=== PATIENT | female | born 1960 | race Caucasian/White ===

== ENCOUNTER 2024-12-15 16:47 | Emergency (ER) | payer OTHER, SELFPAY ==
[2024-12-15 16:51] VITALS: BP 143/85
[2024-12-15] MEDS: TYLENOL 1000 MG PO (17:37)
[2024-12-15] MEDS: ADACEL 0.5 ML IM (17:37)
--- NOTE | 2024-12-15 17:40 | ED.GENMED ---
History of Present Illness
General
Chief Complaint: Fall
Time Seen by Provider: 12/15/24 16:54
History of Present Illness
History of Present Illness:
64-year-old female with history of hyperlipidemia and thyroid disease presenting after a fall. Patient arrives from the nursing home where she notes that she tripped on her shackles and fell forward onto the pavement, striking her face. Notes that she
started to have epistaxis, and also fell onto her knees. Denies loss of consciousness. She is not on any blood thinners. Denies neck pain. Denies prodromal symptoms such as dizziness or lightheadedness. Denies chest pain or difficulty
breathing. Notes that the nosebleed has improved. Tetanus status unknown.
Phy Exam
Physical Exam
Physical Exam:
General: Well-appearing, no clinical signs of dehydration, nontoxic and in no acute distress
HEENT: protecting airway
Head: Ecchymosis and abrasions to the forehead and nose with evidence of improved epistaxis to the left nare, no active bleeding. Laceration above the lip, irregular. No lacerations in the mouth, jaw aligned. No nasal septal hematoma
Neck: appears supple
CV: Normal heart rate, regular rhythm
Resp: No accessory muscle use, no increased work of breathing
Abd: Soft and non-distended, no tenderness to palpation
Extremities: No deformities, no swelling. Mild bruising to the bilateral suprapatellar knees with abrasions. Range of motion intact.
Neuro: alert, no focal neurologic deficit
: deferred
Rectal: deferred
Psych: Normal affect
Skin: Intact
Course
Orders/Labs/Results
Orders:
Orders
12/15/24 17:12
CT Facial Bones W/o Iv Contras Urgent
Comment:
Reason For Exam: fall, nasal trauma
Knee, Left 4 or More Views [CR Knee - Left 4 Or More View*] Urgent
Comment:
Reason For Exam: fall, bruising
Knee, Right 4 or More Views [CR Knee- Right 4 Or More View*] Urgent
Comment:
Reason For Exam: fall, abrasions
12/15/24 17:13
CT Head W/o Iv Contrast Urgent
Comment:
Reason For Exam: fall, facial trauma
12/15/24 17:18
Acetaminophen [Tylenol] 1,000 mg PO NOW STA
Tetanus/Diphth/Acelpertussis [Adacel] 0.5 ml IM .ONCE ONE
Vital Signs
Initial and Last Documented VS:
Initial Vital Signs
Temp Pulse Resp BP Pulse Ox
97.8 F 68 18 143/85 98
12/15/24 16:51 12/15/24 16:51 12/15/24 16:51 12/15/24 16:51 12/15/24 16:51
Last Documented Vital Signs
Temp Pulse Resp BP Pulse Ox
97.8 F 68 18 143/85 98
12/15/24 16:51 12/15/24 16:51 12/15/24 16:51 12/15/24 16:51 12/15/24 20:00
Procedures
Laceration Closure
upper lip area:
Status of Wound: dirty
Size of Wound in cm: 3
Description of Wound Edges: ragged and macerated
Preparation: cleaned with saline
Anesthesia: 1% Lidocaine
Wound exploration: extensive cleaning of contaminated wound
Type of Closure: single layer closure
Skin Closure Material: 5-0 prolene
Number of sutures: 5
MDM/Problems Addressed
MDM/Problems Addressed:
64-year-old female presenting from nursing home facility after a fall with signs of facial trauma. Vital signs on arrival are normal.
On exam patient is resting comfortably, no acute distress. Obvious signs of abrasions and trauma to the face with suspicion for nasal fracture. No swelling to the orbits. No pain with extraocular movements. No nasal septal hematoma. There
appears to be a laceration underneath the nares. Will irrigate and clean. Will update tetanus. Plan for CT facial bones and CT head given patient's examination. Will update tetanus. Mild abrasions to the knees without significant concern for
fracture or malalignment. Patient was able to ambulate, however noted pain with ambulation. Will obtain x-ray imaging. Tylenol administered for pain.
21:00 - CT is consistent with a nasal bone fracture. X-rays of the knees within normal limits. Laceration repaired. Please see procedure note. Feel stable for discharge. Advised outpatient follow-up with ear nose and throat. Return precautions
discussed and patient verbalized understanding.
*Pulse Oximetry
SaO2: 98
Oxygen Mode of Delivery: Room air
Patient hypoxic: no
*Critical Care Note
Total Time (30-74mins, 75-104mins- exclusive of procedures): Not Applicable
ED Attending Note
-
Portions of this chart may have been created with voice recognition software.� Occasional wrong word or��sound alike� substitutions may have occurred due to the inherent limitations of voice recognition software.
Discharge Plan
Departure
Patient Disposition: Home (Routine Discharge)
Date of Disposition: 12/15/24
Time of Disposition: 20:54
Patient with high blood pressure during this ER visit?: No
Condition: Good
Discharge Problem:
Fall, Fracture of nasal bone, Facial laceration
Instructions: Contusion (DC), Laceration Repair With Stitches (DC), Nose Fracture ED
Referrals:
[facility] [Family Provider, General]
Dana Downing MD [Active, Otology]
Activity Restrictions/Additional Instructions:
You were seen in the emergency department for a fall
You were found to have a fracture to your nose. Please follow-up with ear nose and throat doctor. You also had a laceration with 5 sutures placed. The sutures will need to be removed in 5 to 7 days.
Please follow-up closely with your primary care physician.
Return to the emergency department for any worsening of your symptoms, or any development of chest pain, difficulty breathing, abdominal pain with persistent vomiting and inability to tolerate food or liquid by mouth (concern for dehydration),
weakness, headache or confusion, fever greater than 100.4, or any additional symptoms that are concerning to you.
Thank you for choosing [facility].
Interventions
Interventions:
*Risk Screen - Suicide Last Done: 12/15/24 16:51
*General Assessment Last Done: 12/15/24 16:51
*Neglect/Abuse Screening Last Done: 12/15/24 16:51
*ED- Fall Risk Assessment Last Done: 12/15/24 16:51
*ED COVID-19 Vaccine History Last Done: 12/15/24 16:51
ED-Musculoskeletal Assessment Last Done: 12/15/24 20:00
ED- Neurological Assessment Last Done: 12/15/24 20:00
ED-Skin Assessment Last Done: 12/15/24 20:00
Discharge Date and Time
Print Language: ITALIAN
[2024-12-15 20:00] VITALS: BMI 23.4
[2024-12-15 22:08] VITALS: BP 116/86
== END 2024-12-15 22:12 ==
LOC: EMR 16:47
PROVIDERS: EMERGENCY PHYSICIAN Student in an Organized Health Care Education/Training Program
DX: S02.2XXA Fracture of nasal bones, initial encounter for closed fracture (principal); S01.511A Laceration without foreign body of lip, initial encounter; E78.5 Hyperlipidemia, unspecified; Z23 Encounter for immunization; W01.198A Fall on same level from slipping, tripping and stumbling with subsequent striking against other object, initial encounter; Y92.149 Unspecified place in prison as the place of occurrence of the external cause
CPT/HCPCS: 99284; 12013; 90471; 70450; 70486; 73564; 90715